=== PATIENT | female | born 1990 | race Caucasian/White ===

== ENCOUNTER 2019-05-21 06:23 | Inpatient (IN) ==
[2019-05-21] MEDS ORDERED: D5 1/2 NS 1000 ML 1,000 ML IV ONE (06:27)
--- NOTE | 2019-05-21 07:01 | DR.OB ---
OB Quick Note - Assessment/Plan Assessment/Plan: L&D 05/21/19 at 6:50am S-No complaint. O-Afebrile,VSS ZKH=257 with good LTV, +accel, no decel. CTX=occasional, mild CVX=2-3cm/50%/-1/VTX AROM with clear fluid. IUPC and FSE placed. A-IUP at 39 1/7 weeks for induction Rh- GERD P-Begin pitocin induction Anticipate
[2019-05-21] MEDS ORDERED: D5LR 1L W PITOCIN 10 UNITS/L 10 UNITS/1,000 ML BAG IV ONE (07:12)
[2019-05-21] MEDS ORDERED: PITOCIN ONE (07:12)
[2019-05-21] MEDS ORDERED: D5 1/2 NS 1L W PITOCIN 20 UNITS/L 20 UNITS/1,000 ML BAG IV ONE (07:12)
[2019-05-21] MEDS ORDERED: PITOCIN IVP ONE (07:23)
[2019-05-21] MEDS ORDERED: D5LR 1L W PITOCIN 10 UNITS/L 10 UNITS/1,000 ML BAG IV PRN (07:23)
[2019-05-21] MEDS ORDERED: NUBAIN INJ 200 MG VIAL MULTIDOSE IVP PRN (07:23)
[2019-05-21] MEDS ORDERED: MORPHINE SULFATE INJ 2 MG INJ IVP PRN (07:23)
[2019-05-21] MEDS ORDERED: REGLAN INJ 10 MG VIAL IVP PRN (07:23)
[2019-05-21] MEDS ORDERED: PHENERGAN INJ 25 MG IM PRN ×2 (07:23→16:28)
[2019-05-21] MEDS: D5 1/2 NS 1000 ML 1,000 ML IV SCH ×2 (07:27→17:54)
[2019-05-21] MEDS ORDERED: LR 1000 ML IV 1,000 ML IV ONE (09:24)
[2019-05-21] MEDS ORDERED: FENTANYL INJ 100 mcg ONE (09:25)
[2019-05-21] MEDS ORDERED: NAROPIN EPIDURAL 0.2% + FENTANYL 90MCG 60 ML EPI ONE (09:25)
--- NOTE | 2019-05-21 11:49 | DR.OB ---
OB Quick Note - Assessment/Plan Assessment/Plan: L&D 05/21/19 at 11:45am Pitocin=8mu/min. S-No complaint. s/p epidural. O-Afebrile,VSS JCM=250 with good LTV, +accel, no decel. CTX=q 1 1/2 to 2 min., about 35-45mmHg CVX=4cm/50%/-1 A-IUP at 39 1/7 weeks for induction Rh- GERD P-Cont. pitocin induction Anticipate
--- NOTE | 2019-05-21 16:28 | DR.OB ---
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 Head delivered over intact perineum. No nuchal cord. Nose and mouth bulb suctioned. Body delivered over intact perineum. Cord clamped x 2 and cut. handed to attendant. Cord sent for gases. Placenta delivered spontaneously / intact / 3 vessel cord. No CVX / vaginal / perineal tears. Viable male infant, VTX/OA, wt=6'6" and 9/9, stable to NBN. Mother stable to RR. AOS=104hi.
[2019-05-21] MEDS ORDERED: ADACEL or BOOSTRIX TDaP VACCINE IM ONE (17:49)
[2019-05-21] MEDS ORDERED: HYPERRHO S/D (or RHOGAM) IM PRN (17:49)
[2019-05-21] MEDS ORDERED: AMBIEN PO PRN (17:49)
[2019-05-21] MEDS ORDERED: MILK OF MAGNESIA PO PRN (17:49)
[2019-05-21] MEDS ORDERED: DERMOPLAST PAIN RELIEF SPRAY TOP PRN (17:49)
[2019-05-21] MEDS: D5 1/2 NS 1000 ML 1,000 ML with PITOCIN 20 UNITS IV SCH ×2 (18:32)
[2019-05-21] MEDS: MOTRIN TAB 800 MG PO PRN (23:36)
[2019-05-22] MEDS: D5 1/2 NS 1000 ML 1,000 ML with PITOCIN 20 UNITS IV SCH ×2 (00:52)
[2019-05-22 05:20] LABS: HEMOGLOBIN 9.7 g/dL (12.0-16.0)
[2019-05-22] MEDS: MOTRIN TAB 800 MG PO PRN (08:14)
[2019-05-22] MEDS ORDERED: PRENATAL PLUS PO SCH (09:00)
[2019-05-22] MEDS ORDERED: PROTONIX TAB 40 MG PO SCH (09:00)
[2019-05-22 10:01] VITALS: BP 102/59
== END 2019-05-22 11:27 | disposition home or self-care (01) | DRG 806 ==
LOC: LD 06:23 → MED/SURG 17:49
PROVIDERS: ADMIT Specialist; ATTEND Specialist
DX: O36.0930 Maternal care for other rhesus isoimmunization, third trimester, not applicable or unspecified; Z37.0 Single live birth; Z3A.39 39 weeks gestation of pregnancy; O99.613 Diseases of the digestive system complicating pregnancy, third trimester; Z23 Encounter for immunization
CPT/HCPCS: 36415; 59409; 85014; 85018; 85461; 86850; 86900; 86901; 90715; A4216; J2590; J2790; J3010; J7120; S0197; S5010

== ENCOUNTER 2022-08-01 06:14 | Inpatient (IN) ==
[2022-08-01] MEDS ORDERED: PITOCIN ONE (06:31)
[2022-08-01] MEDS ORDERED: BETADINE SOLN ONE (06:32)
[2022-08-01] MEDS ORDERED: D5 LR + PITOCIN 10 UNITS/L 10 UNITS/1,000 ML BAG IV ONE (06:32)
[2022-08-01] MEDS ORDERED: D5 1/2 NS 1,000 ML 1,000 ML IV ONE (06:32)
[2022-08-01] MEDS ORDERED: D5 1/2 NS 1,000 mL + PITOCIN 20 UNITS/L IV 20 UNITS/1,000 ML BAG IV ONE (06:33)
--- NOTE | 2022-08-01 07:12 | DR.OB ---
OB Quick Note - Assessment/Plan Assessment/Plan: L&D 08/01/22 at 7:00am S-No complaint. O-Afebrile,VSS BJS=130 with good LTV, +accel, no decel. CTX=none CVX=3cm/50%/0/VTX AROM with clear fluid. IUPC and FSE placed. A-IUP at 39 0/7 weeks for induction Rh- P-Begin pitocin induction Anticipate
[2022-08-01] MEDS ORDERED: ZOFRAN INJ 4 MG VIAL IVP PRN (07:18)
[2022-08-01] MEDS ORDERED: NUBAIN INJ 20 MG AMP IVP PRN (07:18)
[2022-08-01] MEDS ORDERED: REGLAN INJ 10 MG VIAL IVP PRN (07:18)
[2022-08-01] MEDS ORDERED: D5 1/2 NS 1,000 ML 1,000 ML IV SCH (07:18)
[2022-08-01] MEDS ORDERED: PITOCIN IVP ONE (07:18)
[2022-08-01] MEDS ORDERED: D5 LR + PITOCIN 10 UNITS/L 10 UNITS/1,000 ML BAG IV PRN (07:18)
[2022-08-01] MEDS ORDERED: STADOL INJ IVP PRN (07:18)
[2022-08-01] MEDS ORDERED: LR 1,000 ML IV 1,000 ML IV ONE (09:08)
[2022-08-01] MEDS ORDERED: NAROPIN EPIDURAL 0.2% 100 ML ONE (09:08)
[2022-08-01] MEDS ORDERED: FENTANYL VIAL INJ 100 mcg ONE (09:08)
[2022-08-01] MEDS ORDERED: EPHEDRINE SULFATE INJ ONE (11:08)
--- NOTE | 2022-08-01 11:52 | DR.OB ---
OB Quick Note - Assessment/Plan Assessment/Plan: L&D 08/01/22 at 11:45am Pitocin=8mu/min. S-No complaint. s/p epidural. O-Afebrile,VSS YHA=671 with good LTV, +accel, no decel. CTX=q 1 1/2 to 2 min., about 45-55mmHg CVX=7cm/75%/0 A-IUP at 39 0/7 weeks for induction Rh- P-Cont. pitocin induction Anticipate
[2022-08-01] MEDS: D5 1/2 NS 1,000 ML 1,000 ML with PITOCIN 20 UNITS IV SCH ×4 (14:40→22:43)
[2022-08-01] MEDS ORDERED: DERMOPLAST PAIN RELIEF SPRAY TOP PRN (15:07)
[2022-08-01] MEDS ORDERED: ADACEL or BOOSTRIX TDaP VACCINE IM ONE (15:07)
[2022-08-01] MEDS ORDERED: MILK OF MAGNESIA PO PRN (15:07)
[2022-08-01] MEDS ORDERED: AMBIEN PO PRN (15:07)
[2022-08-01] MEDS ORDERED: HYPERRHO S/D (or RHOGAM) IM PRN (15:07)
--- NOTE | 2022-08-01 16:45 | DR.OB ---
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 Head delivered over intact perineum. No nuchal cord. Nose and mouth bulb suctioned. Body delivered over intact perineum. Cord clamped x 2 and cut. handed to attendant. Cord sent for gases. Placenta delivered spontaneously / intact / 3 vessel cord. No CVX / vaginal / perineal tears. Viable female delivered by , wt=6'15" and 8/9, stable to NBN. Mother stable to RR. ELT=131yy.
[2022-08-01] MEDS: MOTRIN TAB 800 MG PO PRN (19:34)
[2022-08-02 05:17] LABS: HEMATOCRIT 28.7 % (36.0-47.0); HEMOGLOBIN 9.5 g/dL (12.0-16.0)
[2022-08-02 08:10] VITALS: O2SAT 98
[2022-08-02] MEDS: MOTRIN TAB 800 MG PO PRN (08:35)
[2022-08-02] MEDS ORDERED: ADACEL or BOOSTRIX TDaP VACCINE IM ONE (09:00)
[2022-08-02] MEDS ORDERED: PRENATAL PLUS PO SCH (09:00)
[2022-08-02 13:31] VITALS: BP 112/58; PULSE 94; TEMP 98.9
== END 2022-08-02 15:20 | disposition home or self-care (01) | DRG 807 ==
LOC: LD 06:14 → MED/SURG 15:27
PROVIDERS: ADMIT Specialist; ATTEND Specialist
DX: O36.0930 Maternal care for other rhesus isoimmunization, third trimester, not applicable or unspecified; Z3A.39 39 weeks gestation of pregnancy; Z37.0 Single live birth